=== PATIENT | female | born 1965 | race Caucasian/White ===

== ENCOUNTER 2016-11-06 19:33 | Emergency (ER) | payer BC ==
[~2016-11-06] VITALS: Ht 165.1 cm; Wt 99.8 kg
[~2016-11-06 19:33] MED LIST: NEXIUM40 MG PO; PATANOL5 ML EYEBOTH; PRISTIQ ER100 MG PO; PROAIR HFA8.5 GM INH; RESTASIS1 EACH EYEBOTH; VITAMIN D2000 UNIT PO; ZYRTEC10 MG PO
== END 2016-11-06 23:32 | disposition short-term general hospital (02) ==
LOC: ER 19:33
DX: E86.0 Dehydration (principal); R07.89 Other chest pain; E11.9 Type 2 diabetes mellitus without complications; R00.0 Tachycardia, unspecified; F41.9 Anxiety disorder, unspecified; F32.9 Major depressive disorder, single episode, unspecified; E78.5 Hyperlipidemia, unspecified; E55.9 Vitamin D deficiency, unspecified; Z88.1 Allergy status to other antibiotic agents; Z88.0 Allergy status to penicillin; Z88.2 Allergy status to sulfonamides; Z79.899 Other long term (current) drug therapy

== ENCOUNTER → 2016-11-13 | Outpatient (CLI) | payer BC | END | disposition short-term general hospital (02) | LOC: CLCARD 10:48 | DX: R00.2 Palpitations (principal); E78.5 Hyperlipidemia, unspecified; E66.9 Obesity, unspecified; R07.9 Chest pain, unspecified; R06.02 Shortness of breath; R53.83 Other fatigue; R00.0 Tachycardia, unspecified ==